=== PATIENT | female | born 1975 | race Caucasian/White ===

== ENCOUNTER 2018-10-12 13:28 | Emergency (ER) | payer MEDICAID ==
[~2018-10-12] VITALS: Ht 170.2 cm; Wt 72.7 kg
[2018-10-12 13:31] VITALS: Ht 170.2 cm; Wt 72.7 kg
[2018-10-12] MEDS ORDERED: ONDANSETRON 4 MG INJ IV STA (13:44)
[2018-10-12] MEDS ORDERED: SOD CHLORIDE 0.9% 1,000 ML IV STA (13:44)
[2018-10-12] MEDS ORDERED: LORAZEPAM 2 MG INJ IV ONE (15:00)
[2018-10-12 15:40] VITALS: BP 120/79; PULSE 76; RESP 19
== END 2018-10-12 15:51 | disposition home or self-care (01) ==
LOC: E/R 13:28
DX: T45.0X1A Poisoning by antiallergic and antiemetic drugs, accidental (unintentional), initial encounter (principal); R42 Dizziness and giddiness; X58.XXXA Exposure to other specified factors, initial encounter; Y92.9 Unspecified place or not applicable
CPT/HCPCS: 80048; 84703; 85025; 96361; 96374; 96375; J2060; J2405; J7030; Z7502; 93005